=== PATIENT | female | born 1945 | race Caucasian/White ===

== ENCOUNTER 2018-01-15 07:59 | Emergency (ER) | END 2018-01-15 09:50 | disposition home or self-care (01) ==

== ENCOUNTER 2018-04-16 15:59 | Emergency (ER) | END 2018-04-16 19:30 | disposition home or self-care (01) ==

== ENCOUNTER 2018-05-13 21:06 | Emergency (ER) | payer MEDICARE, OTHER ==
[~2018-05-13] VITALS: Wt 40.9 kg
[~2018-05-13 21:06] MED LIST: CEPH-443 PO; IBUP-1542 PO
--- NOTE | 2018-05-14 01:07 | ERD ---
ER Documentation Chief Complaint Chief Complaint nosebleed today right nostril. denies blood thinner HPI This is a very pleasant 72-year female, with a nosebleed today from right nostril. She denies any blood thinners. Bleeding started around 2:00 on and off. She has been blowing her nose a lot. No fevers no chills. No other current complaints. ROS All systems reviewed and are negative except as per history of present illness. Medications Home Meds Active Scripts Cephalexin* (Keflex*) 500 Mg Capsule, 500 MG PO BID for 7 Days, CAP Prov:ELIAS CAMPOS MD 04/16/18 Ibuprofen* (Motrin*) 600 Mg Tab, 600 MG PO Q6H PRN for PAIN, #30 TAB Prov:ELIAS CAMPOS MD 04/16/18 Allergies Allergies: Coded Allergies: No Known Drug Allergy (Verified Allergy, Unknown, 05/13/18) PMhx/Soc History of Surgery: Yes (COLON SURGERY, HERNIA REPAIR X 3) Anesthesia Reaction: No Hx Neurological Disorder: No Hx Respiratory Disorders: No Hx Cardiac Disorders: Yes (Hypertension) Hx Psychiatric Problems: Yes (Depression, anxiety, insomnia) Hx Miscellaneous Medical Probl: No Hx Alcohol Use: No Hx Substance Use: No Hx Tobacco Use: No Smoking Status: Never smoker Physical Exam Vitals Vital Signs Date Temp Pulse Resp B/P (MAP) Pulse Ox O2 O2 Flow FiO2 Time Delivery Rate 05/14/18 104 23 161/91 99 Room Air 00:10 (114) 05/13/18 99.3 115 20 140/70 99 21:31 (93) Physical Exam Const: No acute distress Head: Atraumatic Eyes: Normal Conjunctiva ENT: Normal External Ears, Nose and Mouth. Neck: Full range of motion. No meningismus. Resp: Clear to auscultation bilaterally Cardio: Regular rate and rhythm, no murmurs Abd: Soft, non tender, non distended. Normal bowel sounds Skin: No petechiae or rashes Back: No midline or flank tenderness Ext: No cyanosis, or edema Neur: Awake and alert Psych: Normal Mood and Affect Procedures/MDM Medical decision makin-year-old female with epistaxis since resolved. At this point clinically stable for outpatient management. No intervention was needed at this time. Advised to use saline drops to keep moist. Follow-up with PCP. Departure Diagnosis: Primary Impression: Epistaxis Condition: Stable Patient Instructions: Epistaxis (Adult) KORI WHITE May 14, 2018 01:07
[2018-05-14 02:00] VITALS: BP 131/77; PULSE 106; RESP 25
== END 2018-05-14 02:03 | disposition home or self-care (01) ==
LOC: E/R 21:06
DX: R04.0 Epistaxis (principal); I10 Essential (primary) hypertension
CPT/HCPCS: 99282